=== PATIENT | female | born 1990 | race Caucasian/White ===

== ENCOUNTER 2021-03-04 01:24 | Emergency (ER) | payer OTHER ==
[2021-03-04 01:42] VITALS: BP 116/69; PULSE 75; TEMP 98.3; BMI 20.1
[2021-03-04] MEDS ORDERED: DIPHTH,PERTUSS(ACELL),TET 0.5 ML DISP.SYRIN IM ONE (01:48)
[2021-03-04] MEDS ORDERED: ACETAMINOPHEN 325 MG TABLET (FP) PO ONE (01:56)
[2021-03-04] MEDS ORDERED: ACETAMINOPHEN 325 MG TABLET (FP) ONE (02:00)
== END 2021-03-04 05:36 | disposition home or self-care (01) ==
LOC: JER 01:24
PROC: 3E0234Z Introduction of Serum, Toxoid and Vaccine into Muscle, Percutaneous Approach (ICD-10-PCS; principal; 2021-03-04)
PROC: 0HQ1XZZ Repair Face Skin, External Approach (ICD-10-PCS; 2021-03-04)
DX: S01.81XA Laceration without foreign body of other part of head, initial encounter (principal); S00.83XA Contusion of other part of head, initial encounter; W01.0XXA Fall on same level from slipping, tripping and stumbling without subsequent striking against object, initial encounter; Y93.K1 Activity, walking an animal
CPT/HCPCS: 12001-25; 70450-TC; 70486-TC; 72125-TC; 90471; 90715; 99285-25

== ENCOUNTER 2021-03-16 02:50 | Emergency (ER) | payer OTHER ==
[2021-03-16 02:56] VITALS: BP 122/76; PULSE 87; TEMP 98.3
[2021-03-16 03:21] VITALS: BMI 20.1
== END 2021-03-16 04:52 | disposition left against medical advice (07) ==
LOC: JER 02:50
DX: Z48.01 Encounter for change or removal of surgical wound dressing (principal)
CPT/HCPCS: 99281-25